=== PATIENT | female | born 2000 ===

== ENCOUNTER 2022-04-10 20:20 | Emergency (ER) | payer MEDICAID ==
[2022-04-10] MEDS ORDERED: Metoclopramide 10 MG Tab PO ONE (20:42)
[2022-04-10] MEDS ORDERED: Lidocaine 2% Viscous Solution 15 ML UD PO ONE (20:42)
== END 2022-04-10 21:52 | disposition home or self-care (01) ==
LOC: MW.ED 20:20
DX: R07.9 Chest pain, unspecified (principal); Z20.822 Contact with and (suspected) exposure to COVID-19
CPT/HCPCS: 71045; 99285; A9270; 93010; 99283

== ENCOUNTER 2022-07-14 15:30 | Emergency (ER) | payer MEDICAID ==
[2022-07-14] MEDS ORDERED: Ketorolac 60 MG/2 ML SDV IM ONE (18:21)
[2022-07-14] MEDS ORDERED: Sodium Chloride 0.9% 1,000 ML IV ONE (18:21)
[2022-07-14] MEDS ORDERED: Ketorolac 30 MG/ML SDV IVPUSH ONE (18:22)
[2022-07-14] MEDS ORDERED: Ondansetron 4 MG/2 ML SDV IVPUSH ONE (18:22)
[2022-07-14 19:35] LABS: CORONAVIRUS COVID-19 NAA NEGATIVE (NEGATIVE); INFLUENZA A NAA NEGATIVE (NEGATIVE); INFLUENZA B NAA NEGATIVE (NEGATIVE); RESPIRATORY SYNCYTIAL VIR NAA NEGATIVE (NEGATIVE)
[2022-07-14 19:40] LABS: CARBON DIOXIDE,CO2 24.4 mmol/L (21.0-32.0); POTASSIUM,K 3.7 mmol/L (3.5-5.1)
[2022-07-14] MEDS ORDERED: Acetaminophen 500 MG Tab PO ONE (20:15)
== END 2022-07-14 20:30 | disposition home or self-care (01) ==
LOC: MW.ED 15:30
DX: R10.31 Right lower quadrant pain (principal); R10.32 Left lower quadrant pain; F17.210 Nicotine dependence, cigarettes, uncomplicated; Z79.84 Long term (current) use of oral hypoglycemic drugs; Z20.822 Contact with and (suspected) exposure to COVID-19
CPT/HCPCS: 0241U; 36415; 76830; 80053; 81003; 81025; 85025; 87651; 96361; 96374; 96375; 99284; A9270; J1885; J2405; J7030

== ENCOUNTER 2022-09-23 03:34 | Emergency (ER) | payer MEDICAID ==
[2022-09-23] MEDS ORDERED: Sulfamethoxazole/Trimethoprim 800-160 MG Tab PO ONE (04:17)
== END 2022-09-23 04:25 | disposition home or self-care (01) ==
LOC: MW.ED 03:34
DX: N39.0 Urinary tract infection, site not specified (principal)
CPT/HCPCS: 81001; 99283; A9270; 99282